=== PATIENT | female | born 1930 | race African-American/Black ===

== ENCOUNTER 2017-02-07 07:21 | Inpatient (IN) | payer MEDICARE, BC ==
[~2017-02-07] VITALS: Ht 157.5 cm; Wt 93.9 kg
[~2017-02-07 07:21] MED LIST: ACET650S28 PO; AMLO-512 PO; ASPI-1093 PO; ATOR10TA84 PO; BISA10S PR; BUPR1PAT TD; CLON.1 PO; DSS100 PO; ESCI10TA PO; ESZO2 PO; GABA-531 PO; LIDOP TD; LORA1TAB3 PO; LORA2TAB2 PO; METO25 PO; MOM30 PO; MULT-1192 PO; PANT40TA25 PO; SOLI5 PO; TRAM50TA4 PO
[2017-02-07] MEDS ORDERED: ASPIRIN 81 MG CHEWABLE TABLET PO ONE (07:45)
[2017-02-07] MEDS ORDERED: NITROGLYCERIN 2% (1 GM=INCH) PACKET TP ONE (07:45)
[2017-02-07 07:55] LABS: BASOPHILS % (AUTO) 0.5 % (0.0-2.0); HEMATOCRIT 27.7 % (36-46); HEMOGLOBIN 8.3 g/dL (12.0-16.0); LYMPHOCYTES # (AUTO) 2.3 K/uL (1.0-4.8); LYMPHOCYTES % (AUTO) 18.4 % (22.0-44.0); MEAN CORPUSCULAR HEMOGLOBIN 24.6 pg (26.0-34.0); MEAN CORPUSCULAR HGB CONC 30.1 G/dL (31.0-37.0); MEAN CORPUSCULAR VOLUME 82 fL (80-100); MONOCYTES # (AUTO) 1.1 K/uL (0.1-1.0); MONOCYTES % (AUTO) 8.6 % (2.0-9.0); NEUTROPHILS # (AUTO) 8.9 K/uL (1.8-7.7); NEUTROPHILS % (AUTO) 71.5 % (40.0-70.0); PLATELET COUNT (AUTO) 312 K/uL (150-450); RED BLOOD CELL COUNT(AUTO) 3.38 MIL/uL (4.00-5.20); RED CELL DISTRIBUTION WIDTH 18.1 % (11.5-14.5); WHITE BLOOD COUNT (AUTO) 12.4 K/uL (4.5-11.0)
[2017-02-07 08:14] LABS: ANION GAP 11 mmol/L (8-16); CALCIUM, TOTAL 8.7 mg/dL (8.8-10.5); CARBON DIOXIDE 27 mmol/L (22-29); CHLORIDE 103 mmol/L (98-107); GLOMERULAR FILTR. RATE CALC 37 mL/min (>60); POTASSIUM 4.1 mmol/L (3.5-5.1); SODIUM SERUM 141 mmol/L (136-145); UREA NITROGEN, BLOOD 21 mg/dL (7-18)
[2017-02-07 08:24] LABS: ALBUMIN 3.2 g/dL (3.4-5.0); ASPARTATE AMINOTRANSFERASE 9 U/L (15-37); BILIRUBIN,TOTAL 0.6 mg/dL (0.1-1.0); CREATINE KINASE, TOTAL 16 U/L (26-192); TOTAL PROTEIN, SERUM 7.1 g/dL (6.4-8.2)
[2017-02-07 08:31] LABS: B-TYPE NATRIURETIC PEPTIDE 369 pg/mL (0-100)
[2017-02-07 08:33] LABS: ALANINE AMINOTRANSFERASE 12 U/L (12-78)
[2017-02-07] MEDS ORDERED: ZOLPIDEM TARTRATE 10 MG TABLET PO PRN (09:00)
[2017-02-07] MEDS: ASPIRIN 81 MG CHEWABLE TABLET PO SCH (09:00)
[2017-02-07] MEDS ORDERED: IPRATROPIUM BROMIDE 0.5 MG/2.5 ML NEB SOLUTION NEB PRN (09:00)
[2017-02-07] MEDS ORDERED: ACETAMINOPHEN 325 MG TABLET PO PRN (09:00)
[2017-02-07] MEDS ORDERED: ONDANSETRON HCL 4 MG/2 ML VIAL IVP PRN (09:00)
[2017-02-07] MEDS ORDERED: HYDROCODONE/ACETAMINOPHEN 5-325 MG TABLET PO PRN (09:00)
[2017-02-07] MEDS ORDERED: MORPHINE SULFATE 2 MG/ML SYRINGE IVP PRN (09:00)
[2017-02-07] MEDS: PANTOPRAZOLE SODIUM 40 MG/VIAL IVP SCH (09:11)
[2017-02-07] MEDS: DOCUSATE SODIUM 100 MG CAPSULE PO SCH ×2 (09:12→21:00)
[2017-02-07 10:38] LABS: RBC MORPHOLOGY COMMENT ABNORMAL RBC MORPH
[2017-02-07] MEDS: NITROGLYCERIN 2% (1 GM=INCH) PACKET TP SCH ×3 (11:08→23:00)
[2017-02-07 17:42] VITALS: BP 132/51
[2017-02-07] MEDS: PANTOPRAZOLE SODIUM 40 MG DR TABLET PO SCH (18:15)
[2017-02-07] MEDS ORDERED: LORazepam 2 MG TABLET PO PRN (18:15)
[2017-02-07] MEDS ORDERED: LORazepam 1 MG TABLET PO PRN ×2 (18:15→23:03)
[2017-02-07] MEDS: AmLODIPine BESYLATE 10 MG TABLET PO SCH (19:36)
[2017-02-07] MEDS: ATORVASTATIN CALCIUM 10 MG TABLET PO SCH (19:36)
[2017-02-07] MEDS: -LIDODERM PATCH NOTE- MISC SCH ×2 (19:53)
[2017-02-07] MEDS ORDERED: BUPRENORPHINE 5 MCG/HOUR PATCH TD SCH (20:00)
[2017-02-07 20:11] VITALS: BP 171/83
[2017-02-07] MEDS: ESZOPICLONE 2 MG TABLET PO SCH (21:53)
[2017-02-07] MEDS: SOLIFENACIN SUCCINATE 5 MG TABLET PO SCH (21:54)
[2017-02-07] MEDS: METOPROLOL TARTRATE 25 MG TABLET PO SCH (21:54)
[2017-02-07 22:49] VITALS: BP 148/85
[2017-02-07] MEDS: TraMADol HCL 50 MG TABLET PO SCH (22:55)
[2017-02-07] MEDS: GABAPENTIN 300 MG CAPSULE PO SCH (22:55)
[2017-02-08 00:21] VITALS: BP 144/66
[2017-02-08 05:12] VITALS: BP 148/73
[2017-02-08 06:27] LABS: CHOL/HDL RATIO 1.7 (3.9-5.7)
[2017-02-08 08:04] VITALS: BP 147/58
[2017-02-08] MEDS: TraMADol HCL 50 MG TABLET PO SCH ×2 (08:32→15:56)
[2017-02-08] MEDS: DOCUSATE SODIUM 100 MG CAPSULE PO SCH ×2 (08:33→21:21)
[2017-02-08] MEDS: PANTOPRAZOLE SODIUM 40 MG/VIAL IVP SCH (08:33)
[2017-02-08] MEDS: ASPIRIN 81 MG CHEWABLE TABLET PO SCH (08:33)
[2017-02-08] MEDS: GABAPENTIN 300 MG CAPSULE PO SCH ×3 (08:34→21:21)
[2017-02-08] MEDS: ESCITALOPRAM OXALATE 10 MG TABLET PO SCH (08:34)
[2017-02-08] MEDS: MULTIVITAMINS, THERAPEUTIC TABLET PO SCH (08:34)
[2017-02-08] MEDS: AmLODIPine BESYLATE 10 MG TABLET PO SCH (08:34)
[2017-02-08] MEDS: ASPIRIN 81 MG EC TABLET PO SCH (08:34)
[2017-02-08] MEDS: LIDOCAINE HCL 5% TRANSDERMAL PATCH TD SCH (08:36)
[2017-02-08] MEDS: METOPROLOL TARTRATE 25 MG TABLET PO SCH (08:37)
[2017-02-08] MEDS: ATORVASTATIN CALCIUM 10 MG TABLET PO SCH (08:40)
[2017-02-08] MEDS: PANTOPRAZOLE SODIUM 40 MG DR TABLET PO SCH (08:40)
[2017-02-08 09:31] LABS: BASOPHILS % (AUTO) 0.5 % (0.0-2.0); EOSINOPHILS % (AUTO) 0.6 % (1.0-6.0); HEMATOCRIT 27.3 % (36-46); HEMOGLOBIN 8.1 g/dL (12.0-16.0); LYMPHOCYTES # (AUTO) 0.9 K/uL (1.0-4.8); LYMPHOCYTES % (AUTO) 8.7 % (22.0-44.0); MEAN CORPUSCULAR HEMOGLOBIN 24.3 pg (26.0-34.0); MEAN CORPUSCULAR HGB CONC 29.8 G/dL (31.0-37.0); MEAN CORPUSCULAR VOLUME 81 fL (80-100); MONOCYTES # (AUTO) 0.4 K/uL (0.1-1.0); MONOCYTES % (AUTO) 3.7 % (2.0-9.0); NEUTROPHILS # (AUTO) 8.8 K/uL (1.8-7.7); PLATELET COUNT (AUTO) 308 K/uL (150-450); RED BLOOD CELL COUNT(AUTO) 3.35 MIL/uL (4.00-5.20); WHITE BLOOD COUNT (AUTO) 10.2 K/uL (4.5-11.0)
[2017-02-08 09:42] LABS: NEUTROPHILS % (AUTO) 86.5 % (40.0-70.0); RBC MORPHOLOGY COMMENT ABNORMAL RBC MORPH
[2017-02-08 09:43] LABS: CALCIUM, TOTAL 8.5 mg/dL (8.8-10.5); CREATININE 1.44 mg/dL (0.60-1.30); POTASSIUM 4.7 mmol/L (3.5-5.1)
[2017-02-08 09:48] LABS: ALBUMIN 2.8 g/dL (3.4-5.0); BILIRUBIN,TOTAL 0.7 mg/dL (0.1-1.0); TOTAL PROTEIN, SERUM 6.4 g/dL (6.4-8.2)
[2017-02-08 10:07] LABS: VITAMIN B12 LEVEL 223 pg/mL (211-911)
[2017-02-08 11:53] VITALS: BP 126/56
[2017-02-08 15:37] VITALS: BP 130/59
[2017-02-08] MEDS: NITROGLYCERIN 2% (1 GM=INCH) PACKET TP SCH ×2 (15:55→15:56)
[2017-02-08 20:00] VITALS: BP 122/66
[2017-02-08] MEDS: METOPROLOL TARTRATE 50 MG TABLET PO SCH (21:21)
[2017-02-08] MEDS: SOLIFENACIN SUCCINATE 5 MG TABLET PO SCH (21:21)
[2017-02-08] MEDS: -LIDODERM PATCH NOTE- MISC SCH ×2 (21:21)
[2017-02-08] MEDS: ESZOPICLONE 2 MG TABLET PO SCH (21:21)
[2017-02-09 04:20] VITALS: BP 136/65
[2017-02-09] MEDS: TraMADol HCL 50 MG TABLET PO SCH ×4 (04:21→16:43)
[2017-02-09] MEDS: NITROGLYCERIN 2% (1 GM=INCH) PACKET TP SCH ×4 (05:58→18:16)
[2017-02-09 07:59] VITALS: BP 120/57
[2017-02-09] MEDS: ESCITALOPRAM OXALATE 10 MG TABLET PO SCH (08:42)
[2017-02-09] MEDS: ASPIRIN 81 MG EC TABLET PO SCH (08:42)
[2017-02-09] MEDS: AmLODIPine BESYLATE 10 MG TABLET PO SCH (08:43)
[2017-02-09] MEDS: GABAPENTIN 300 MG CAPSULE PO SCH ×3 (08:43→21:25)
[2017-02-09] MEDS: ATORVASTATIN CALCIUM 20 MG TABLET PO SCH (08:43)
[2017-02-09] MEDS: DOCUSATE SODIUM 100 MG CAPSULE PO SCH ×2 (08:43→21:25)
[2017-02-09] MEDS: METOPROLOL TARTRATE 50 MG TABLET PO SCH ×2 (08:43→21:00)
[2017-02-09] MEDS: PANTOPRAZOLE SODIUM 40 MG DR TABLET PO SCH (08:43)
[2017-02-09] MEDS: MULTIVITAMINS, THERAPEUTIC TABLET PO SCH (08:43)
[2017-02-09] MEDS: LIDOCAINE HCL 5% TRANSDERMAL PATCH TD SCH ×2 (08:53→21:26)
[2017-02-09] MEDS: PANTOPRAZOLE SODIUM 40 MG/VIAL IVP SCH (08:54)
[2017-02-09 10:23] LABS: BASOPHILS % (AUTO) 0.2 % (0.0-2.0); EOSINOPHILS % (AUTO) 2.1 % (1.0-6.0); HEMATOCRIT 26.3 % (36-46); HEMOGLOBIN 7.9 g/dL (12.0-16.0); LYMPHOCYTES % (AUTO) 11.8 % (22.0-44.0); MEAN CORPUSCULAR HEMOGLOBIN 24.5 pg (26.0-34.0); MEAN CORPUSCULAR HGB CONC 30.1 G/dL (31.0-37.0); MEAN CORPUSCULAR VOLUME 82 fL (80-100); MONOCYTES # (AUTO) 0.8 K/uL (0.1-1.0); MONOCYTES % (AUTO) 9.3 % (2.0-9.0); NEUTROPHILS # (AUTO) 6.7 K/uL (1.8-7.7); NEUTROPHILS % (AUTO) 76.6 % (40.0-70.0); PLATELET COUNT (AUTO) 299 K/uL (150-450); RED BLOOD CELL COUNT(AUTO) 3.22 MIL/uL (4.00-5.20); RED CELL DISTRIBUTION WIDTH 17.9 % (11.5-14.5); WHITE BLOOD COUNT (AUTO) 8.8 K/uL (4.5-11.0)
[2017-02-09 10:41] LABS: ALBUMIN 2.5 g/dL (3.4-5.0); BILIRUBIN,TOTAL 0.6 mg/dL (0.1-1.0); CALCIUM, TOTAL 8.2 mg/dL (8.8-10.5); CREATININE 1.57 mg/dL (0.60-1.30); POTASSIUM 4.7 mmol/L (3.5-5.1); TOTAL PROTEIN, SERUM 6.1 g/dL (6.4-8.2)
[2017-02-09 10:49] LABS: RBC MORPHOLOGY COMMENT ABNORMAL RBC MORPH
[2017-02-09 11:35] VITALS: BP 124/48
[2017-02-09 15:10] VITALS: BP 129/70
[2017-02-09 19:05] VITALS: BP 107/51
[2017-02-09] MEDS: SOLIFENACIN SUCCINATE 5 MG TABLET PO SCH (21:25)
[2017-02-09] MEDS: MAGNESIUM HYDROXIDE SUSPENSION 30 ML UDCUP PO PRN (21:25)
[2017-02-09] MEDS: ESZOPICLONE 2 MG TABLET PO SCH (21:25)
[2017-02-10] MEDS: NITROGLYCERIN 2% (1 GM=INCH) PACKET TP SCH ×4 (06:45→18:28)
[2017-02-10 06:46] VITALS: BP 124/60
[2017-02-10] MEDS: GABAPENTIN 300 MG CAPSULE PO SCH ×3 (09:00→21:00)
[2017-02-10 09:59] VITALS: BP 135/61
[2017-02-10] MEDS: AmLODIPine BESYLATE 10 MG TABLET PO SCH (10:03)
[2017-02-10] MEDS: TraMADol HCL 50 MG TABLET PO SCH ×3 (10:03→18:28)
[2017-02-10] MEDS: -LIDODERM PATCH NOTE- MISC SCH ×2 (10:03)
[2017-02-10] MEDS: DOCUSATE SODIUM 100 MG CAPSULE PO SCH ×2 (10:03→20:32)
[2017-02-10] MEDS: PANTOPRAZOLE SODIUM 40 MG DR TABLET PO SCH (10:03)
[2017-02-10] MEDS: MULTIVITAMINS, THERAPEUTIC TABLET PO SCH (10:03)
[2017-02-10] MEDS: ATORVASTATIN CALCIUM 20 MG TABLET PO SCH (10:03)
[2017-02-10] MEDS: ASPIRIN 81 MG EC TABLET PO SCH (10:03)
[2017-02-10] MEDS: METOPROLOL TARTRATE 50 MG TABLET PO SCH ×2 (10:03→20:32)
[2017-02-10 11:28] VITALS: BP 133/62
[2017-02-10] MEDS: ESCITALOPRAM OXALATE 10 MG TABLET PO SCH (11:48)
[2017-02-10 15:44] VITALS: BP 109/55
[2017-02-10 19:45] VITALS: BP 135/80
[2017-02-10] MEDS: SOLIFENACIN SUCCINATE 5 MG TABLET PO SCH (20:32)
[2017-02-10] MEDS: ESZOPICLONE 2 MG TABLET PO SCH (20:33)
[2017-02-10] MEDS: LIDOCAINE HCL 5% TRANSDERMAL PATCH TD SCH (20:33)
[2017-02-10] MEDS: MAGNESIUM HYDROXIDE SUSPENSION 30 ML UDCUP PO PRN (20:41)
[2017-02-11] MEDS: GABAPENTIN 100 MG CAPSULE PO SCH ×2 (00:41→17:10)
[2017-02-11] MEDS: TraMADol HCL 50 MG TABLET PO SCH ×3 (00:41→17:10)
[2017-02-11] MEDS: NITROGLYCERIN 2% (1 GM=INCH) PACKET TP SCH ×3 (00:42→13:15)
[2017-02-11 00:50] VITALS: BP 131/65
[2017-02-11 04:43] VITALS: BP 142/67
[2017-02-11 07:55] VITALS: BP 145/61
[2017-02-11] MEDS: ATORVASTATIN CALCIUM 20 MG TABLET PO SCH (09:12)
[2017-02-11] MEDS: DOCUSATE SODIUM 100 MG CAPSULE PO SCH (09:12)
[2017-02-11] MEDS: PANTOPRAZOLE SODIUM 40 MG DR TABLET PO SCH (09:12)
[2017-02-11] MEDS: METOPROLOL TARTRATE 50 MG TABLET PO SCH (09:12)
[2017-02-11] MEDS: MULTIVITAMINS, THERAPEUTIC TABLET PO SCH (09:12)
[2017-02-11] MEDS: ESCITALOPRAM OXALATE 10 MG TABLET PO SCH (09:12)
[2017-02-11] MEDS: AmLODIPine BESYLATE 10 MG TABLET PO SCH (09:12)
[2017-02-11] MEDS: -LIDODERM PATCH NOTE- MISC SCH ×2 (09:16)
[2017-02-11 10:50] VITALS: BP 127/55
[2017-02-11 13:00] LABS: BASOPHILS # (AUTO) 0.02 K/uL (0.00-0.20); BASOPHILS % (AUTO) 0.2 % (0.0-2.0); EOSINOPHILS # (AUTO) 0.28 K/uL (0.00-0.70); EOSINOPHILS % (AUTO) 2.62 % (1.0-6.0); HEMATOCRIT 28.4 % (36-46); HEMOGLOBIN 8.7 g/dL (12.0-16.0); LYMPHOCYTES # (AUTO) 0.8 K/uL (1.0-4.8); LYMPHOCYTES % (AUTO) 7.4 % (22.0-44.0); MEAN CORPUSCULAR HEMOGLOBIN 24.8 pg (26.0-34.0); MEAN CORPUSCULAR HGB CONC 30.5 G/dL (31.0-37.0); MEAN CORPUSCULAR VOLUME 81 fL (80-100); MONOCYTES # (AUTO) 1.1 K/uL (0.1-1.0); MONOCYTES % (AUTO) 10.1 % (2.0-9.0); NEUTROPHILS # (AUTO) 8.4 K/uL (1.8-7.7); NEUTROPHILS % (AUTO) 79.7 % (40.0-70.0); PLATELET COUNT (AUTO) 382 K/uL (150-450); RED BLOOD CELL COUNT(AUTO) 3.49 MIL/uL (4.00-5.20); RED CELL DISTRIBUTION WIDTH 17.5 % (11.5-14.5); WHITE BLOOD COUNT (AUTO) 10.5 K/uL (4.5-11.0)
[2017-02-11 13:23] LABS: CALCIUM, TOTAL 8.8 mg/dL (8.8-10.5); CREATININE 1.57 mg/dL (0.60-1.30); POTASSIUM 5.1 mmol/L (3.5-5.1)
[2017-02-11 13:33] LABS: RBC MORPHOLOGY COMMENT ABNORMAL RBC MORPH
[2017-02-11] MEDS ORDERED: METO50 PO (17:49)
== END 2017-02-11 18:10 | DRG 291 ==
LOC: EMS 07:24 → AHU 16:43 → EEVIPCON 16:43 → 5N 20:45
PROVIDERS: ADMIT Hospitalist; ATTEND Hospitalist
DX: I13.0 Hypertensive heart and chronic kidney disease with heart failure and stage 1 through stage 4 chronic kidney disease, or unspecified chronic kidney disease (principal); I50.33 Acute on chronic diastolic (congestive) heart failure; E44.0 Moderate protein-calorie malnutrition; I20.0 Unstable angina; D64.9 Anemia, unspecified; G89.29 Other chronic pain; E78.5 Hyperlipidemia, unspecified; E11.22 Type 2 diabetes mellitus with diabetic chronic kidney disease; M06.9 Rheumatoid arthritis, unspecified; M79.602 Pain in left arm; N18.9 Chronic kidney disease, unspecified; I25.9 Chronic ischemic heart disease, unspecified; F32.9 Major depressive disorder, single episode, unspecified; I73.9 Peripheral vascular disease, unspecified; Z88.0 Allergy status to penicillin; Z79.899 Other long term (current) drug therapy; Z79.82 Long term (current) use of aspirin; Z98.890 Other specified postprocedural states; Z88.7 Allergy status to serum and vaccine; Z88.8 Allergy status to other drugs, medicaments and biological substances; Z68.37 Body mass index [BMI] 37.0-37.9, adult; Z87.81 Personal history of (healed) traumatic fracture; Z82.49 Family history of ischemic heart disease and other diseases of the circulatory system
CPT/HCPCS: 70450; 73200; 82607; 82746; 83540; 83550; 87081; 93005; 93306; 97161; 99285; C9113; J2270

== ENCOUNTER 2017-06-11 19:15 | Emergency (ER) | payer MEDICARE, BC ==
[~2017-06-11] VITALS: Ht 152.4 cm; Wt 88.6 kg
[~2017-06-11 19:15] MED LIST changes: +ACET-2247 PO; -ACET650S28 PO; -BISA10S PR; -BUPR1PAT TD; -CLON.1 PO; -LORA2TAB2 PO; -METO25 PO; +METO50 PO; -MOM30 PO; +VITAD1000 PO
[2017-06-11] MEDS ORDERED: HYDROCODONE/ACETAMINOPHEN 10-325 MG TABLET PO ONE (20:15)
[2017-06-11 22:00] VITALS: BP 124/78
[2017-06-12] MEDS ORDERED: HYDR-309 PO (20:04)
== END 2017-06-11 22:23 | disposition home or self-care (01) ==
LOC: EMS 19:17
DX: G89.18 Other acute postprocedural pain (principal); M25.522 Pain in left elbow; I10 Essential (primary) hypertension; Z88.0 Allergy status to penicillin; Z88.7 Allergy status to serum and vaccine; Z79.82 Long term (current) use of aspirin; M19.90 Unspecified osteoarthritis, unspecified site; N28.9 Disorder of kidney and ureter, unspecified
CPT/HCPCS: 99283

== ENCOUNTER 2017-06-12 17:57 | Inpatient (IN) | payer MEDICARE, BC ==
[2017-06-12 19:43] VITALS: BP 122/50
[2017-06-12] MEDS ORDERED: HYDR-309 PO (20:04)
[2017-06-12] MEDS ORDERED: SODIUM CHLORIDE 0.9% 1,000 ML IV ONE (20:45)
[2017-06-12] MEDS ORDERED: ACETAMINOPHEN 325 MG TABLET PO PRN (20:45)
[2017-06-12] MEDS ORDERED: LORazepam 1 MG TABLET PO PRN (20:45)
[2017-06-12] MEDS: AmLODIPine BESYLATE 10 MG TABLET PO SCH (20:45)
[2017-06-12] MEDS: HYDROCODONE/ACETAMINOPHEN 10-325 MG TABLET PO PRN (20:55)
[2017-06-12 21:06] LABS: BASOPHILS % (AUTO) 0.2 % (0.0-2.0); HEMATOCRIT 22.8 % (36-46); HEMOGLOBIN 7.1 g/dL (12.0-16.0); LYMPHOCYTES # (AUTO) 1.3 K/uL (1.0-4.8); LYMPHOCYTES % (AUTO) 18.5 % (22.0-44.0); MEAN CORPUSCULAR HEMOGLOBIN 24.5 pg (26.0-34.0); MEAN CORPUSCULAR HGB CONC 31.3 G/dL (31.0-37.0); MEAN CORPUSCULAR VOLUME 78 fL (80-100); MONOCYTES # (AUTO) 0.9 K/uL (0.1-1.0); MONOCYTES % (AUTO) 12.8 % (2.0-9.0); NEUTROPHILS # (AUTO) 4.5 K/uL (1.8-7.7); NEUTROPHILS % (AUTO) 64.5 % (40.0-70.0); PLATELET COUNT (AUTO) 231 K/uL (150-450); RED BLOOD CELL COUNT(AUTO) 2.91 MIL/uL (4.00-5.20); RED CELL DISTRIBUTION WIDTH 20.8 % (11.5-14.5)
[2017-06-12 21:21] LABS: CALCIUM, TOTAL 8.8 mg/dL (8.8-10.5); CREATININE 1.72 mg/dL (0.60-1.30); POTASSIUM 4.9 mmol/L (3.5-5.1)
[2017-06-12 21:26] LABS: ALBUMIN 2.9 g/dL (3.4-5.0); BILIRUBIN,TOTAL 0.4 mg/dL (0.1-1.0); MAGNESIUM 1.7 mg/dL (1.80-2.40); TOTAL PROTEIN, SERUM 6.4 g/dL (6.4-8.2)
[2017-06-12] MEDS: -LIDODERM PATCH NOTE- MISC SCH ×2 (21:31)
[2017-06-12] MEDS: SOLIFENACIN SUCCINATE 5 MG TABLET PO SCH (21:36)
[2017-06-12] MEDS: DOCUSATE SODIUM 100 MG CAPSULE PO SCH (21:36)
[2017-06-12] MEDS: METOPROLOL TARTRATE 50 MG TABLET PO SCH (21:36)
[2017-06-12] MEDS: GABAPENTIN 300 MG CAPSULE PO SCH (21:37)
[2017-06-12] MEDS ORDERED: MAGNESIUM OXIDE 400 MG TABLET PO ONE (22:30)
[2017-06-12] MEDS ORDERED: ONDANSETRON HCL 4 MG/2 ML VIAL IVP PRN (22:45)
[2017-06-12] MEDS ORDERED: MAGNESIUM HYDROXIDE SUSPENSION 30 ML UDCUP PO PRN (22:45)
[2017-06-12] MEDS ORDERED: IPRATROPIUM BROMIDE 0.5 MG/2.5 ML NEB SOLUTION NEB PRN (22:45)
[2017-06-12] MEDS ORDERED: ALBUTEROL SULFATE 2.5 MG/0.5 ML NEB SOLUTION NEB PRN (22:45)
[2017-06-12] MEDS ORDERED: BISACODYL 10 MG RECTAL RECTAL SUPPOSITORY PR PRN (22:45)
[2017-06-12 22:48] LABS: RBC MORPHOLOGY COMMENT ABNORMAL RBC MORPH
[2017-06-12 23:09] VITALS: BP 123/59
[2017-06-12] MEDS: ESZOPICLONE 2 MG TABLET PO SCH (23:37)
[2017-06-12] MEDS: TraMADol HCL 50 MG TABLET PO SCH (23:37)
[2017-06-12] MEDS: PANTOPRAZOLE SODIUM 40 MG/VIAL IVP SCH (23:37)
[2017-06-13 04:46] VITALS: BP 142/69
[2017-06-13] MEDS: HYDROCODONE/ACETAMINOPHEN 10-325 MG TABLET PO PRN ×4 (04:49→20:47)
[2017-06-13 07:07] LABS: PROTHROMBIN TIME 10.9 SEC (9.4-11.6)
[2017-06-13 07:42] LABS: ALBUMIN 2.7 g/dL (3.4-5.0); BILIRUBIN,TOTAL 0.4 mg/dL (0.1-1.0); CALCIUM, TOTAL 8.3 mg/dL (8.8-10.5); CREATININE 1.51 mg/dL (0.60-1.30); MAGNESIUM 1.7 mg/dL (1.80-2.40); PHOSPHORUS 3.7 mg/dL (2.5-4.9); POTASSIUM 4.2 mmol/L (3.5-5.1); TOTAL PROTEIN, SERUM 6.2 g/dL (6.4-8.2)
[2017-06-13 07:49] LABS: BASOPHILS % (AUTO) 0.4 % (0.0-2.0); EOSINOPHILS % (AUTO) 5.7 % (1.0-6.0); HEMATOCRIT 22.4 % (36-46); HEMOGLOBIN 7.1 g/dL (12.0-16.0); LYMPHOCYTES # (AUTO) 1.5 K/uL (1.0-4.8); LYMPHOCYTES % (AUTO) 23.2 % (22.0-44.0); MEAN CORPUSCULAR HEMOGLOBIN 24.9 pg (26.0-34.0); MEAN CORPUSCULAR HGB CONC 31.7 G/dL (31.0-37.0); MEAN CORPUSCULAR VOLUME 79 fL (80-100); MONOCYTES # (AUTO) 0.8 K/uL (0.1-1.0); MONOCYTES % (AUTO) 13.1 % (2.0-9.0); NEUTROPHILS # (AUTO) 3.7 K/uL (1.8-7.7); NEUTROPHILS % (AUTO) 57.6 % (40.0-70.0); PLATELET COUNT (AUTO) 222 K/uL (150-450); RED BLOOD CELL COUNT(AUTO) 2.85 MIL/uL (4.00-5.20); RED CELL DISTRIBUTION WIDTH 21.1 % (11.5-14.5); WHITE BLOOD COUNT (AUTO) 6.4 K/uL (4.5-11.0)
[2017-06-13] MEDS: METOPROLOL TARTRATE 50 MG TABLET PO SCH ×2 (08:18→20:31)
[2017-06-13] MEDS: MULTIVITAMINS, THERAPEUTIC TABLET PO SCH (08:18)
[2017-06-13] MEDS: PANTOPRAZOLE SODIUM 40 MG/VIAL IVP SCH ×2 (08:18→20:31)
[2017-06-13] MEDS: ESCITALOPRAM OXALATE 10 MG TABLET PO SCH (08:18)
[2017-06-13] MEDS: TraMADol HCL 50 MG TABLET PO SCH ×3 (08:19→23:51)
[2017-06-13] MEDS: GABAPENTIN 300 MG CAPSULE PO SCH ×3 (08:19→20:32)
[2017-06-13] MEDS: DOCUSATE SODIUM 100 MG CAPSULE PO SCH ×2 (08:19→20:32)
[2017-06-13] MEDS: AmLODIPine BESYLATE 10 MG TABLET PO SCH (08:19)
[2017-06-13] MEDS: ATORVASTATIN CALCIUM 10 MG TABLET PO SCH (08:19)
[2017-06-13] MEDS: CHOLECALCIFEROL (VIT D3) 1,000 UNITS TABLET PO SCH (08:19)
[2017-06-13] MEDS: LIDOCAINE HCL 5% TRANSDERMAL PATCH TD SCH ×2 (08:26→09:00)
[2017-06-13 08:29] VITALS: BP 161/72
[2017-06-13 08:29] LABS: VITAMIN B12 LEVEL 248 pg/mL (211-911)
[2017-06-13 08:59] LABS: HEMATOCRIT 23.7 % (36-46); HEMOGLOBIN 7.4 g/dL (12.0-16.0)
[2017-06-13] MEDS ORDERED: PANTOPRAZOLE SODIUM 40 MG DR TABLET PO SCH (09:00)
[2017-06-13] MEDS ORDERED: ASPIRIN 81 MG EC TABLET PO SCH (09:00)
[2017-06-13 11:40] VITALS: BP 117/47
[2017-06-13 13:02] LABS: RBC MORPHOLOGY COMMENT ABNORMAL RBC MORPH
[2017-06-13 16:26] VITALS: BP 148/63
[2017-06-13 19:49] VITALS: BP 140/55
[2017-06-13] MEDS: ESZOPICLONE 2 MG TABLET PO SCH (20:31)
[2017-06-13] MEDS: SOLIFENACIN SUCCINATE 5 MG TABLET PO SCH (20:32)
[2017-06-13] MEDS: -LIDODERM PATCH NOTE- MISC SCH ×2 (20:53)
[2017-06-13 21:49] LABS: HEMATOCRIT 23.8 % (36-46); HEMOGLOBIN 7.1 g/dL (12.0-16.0)
[2017-06-13 23:32] VITALS: BP 134/68
[2017-06-13] MEDS: IRON SUCROSE COMPLEX 100 MG in SODIUM CHLORIDE 0.9% 100 ML IV SCH (23:35)
[2017-06-14 03:39] VITALS: BP 151/73
[2017-06-14] MEDS: HYDROCODONE/ACETAMINOPHEN 10-325 MG TABLET PO PRN ×2 (03:43→09:05)
[2017-06-14 07:59] VITALS: BP 125/69
[2017-06-14] MEDS: ESCITALOPRAM OXALATE 10 MG TABLET PO SCH (08:22)
[2017-06-14] MEDS: TraMADol HCL 50 MG TABLET PO SCH ×3 (08:22→23:18)
[2017-06-14] MEDS: MULTIVITAMINS, THERAPEUTIC TABLET PO SCH (08:24)
[2017-06-14] MEDS: ATORVASTATIN CALCIUM 10 MG TABLET PO SCH (08:24)
[2017-06-14] MEDS: METOPROLOL TARTRATE 50 MG TABLET PO SCH ×2 (08:24→19:49)
[2017-06-14] MEDS: DOCUSATE SODIUM 100 MG CAPSULE PO SCH ×2 (08:24→19:49)
[2017-06-14] MEDS: AmLODIPine BESYLATE 10 MG TABLET PO SCH (08:24)
[2017-06-14] MEDS: GABAPENTIN 300 MG CAPSULE PO SCH ×3 (08:24→19:49)
[2017-06-14] MEDS: CHOLECALCIFEROL (VIT D3) 1,000 UNITS TABLET PO SCH (08:24)
[2017-06-14] MEDS: PANTOPRAZOLE SODIUM 40 MG/VIAL IVP SCH ×2 (08:26→19:48)
[2017-06-14 08:58] LABS: HEMATOCRIT 24.6 % (36-46); HEMOGLOBIN 7.6 g/dL (12.0-16.0)
[2017-06-14] MEDS: LIDOCAINE HCL 5% TRANSDERMAL PATCH TD SCH (09:00)
[2017-06-14 11:45] VITALS: BP 121/60
[2017-06-14 15:28] VITALS: BP 112/51
[2017-06-14] MEDS: IRON SUCROSE COMPLEX 100 MG in SODIUM CHLORIDE 0.9% 100 ML IV SCH (19:48)
[2017-06-14] MEDS: SOLIFENACIN SUCCINATE 5 MG TABLET PO SCH (19:49)
[2017-06-14] MEDS: HYDROmorphone 2 MG/ML SYRINGE IVP PRN (19:50)
[2017-06-14 19:56] VITALS: BP 124/48
[2017-06-14] MEDS: -LIDODERM PATCH NOTE- MISC SCH ×2 (20:09)
[2017-06-14] MEDS: ESZOPICLONE 2 MG TABLET PO SCH (20:14)
[2017-06-14 21:31] LABS: HEMATOCRIT 23.7 % (36-46); HEMOGLOBIN 7.4 g/dL (12.0-16.0)
[2017-06-14 23:32] VITALS: BP 144/55
[2017-06-15 05:09] VITALS: BP 149/64
[2017-06-15] MEDS: HYDROmorphone 2 MG/ML SYRINGE IVP PRN (06:20)
[2017-06-15 07:28] VITALS: BP 134/59
[2017-06-15] MEDS: PANTOPRAZOLE SODIUM 40 MG/VIAL IVP SCH (08:21)
[2017-06-15] MEDS: CHOLECALCIFEROL (VIT D3) 1,000 UNITS TABLET PO SCH (08:22)
[2017-06-15] MEDS: METOPROLOL TARTRATE 50 MG TABLET PO SCH (08:22)
[2017-06-15] MEDS: MULTIVITAMINS, THERAPEUTIC TABLET PO SCH (08:22)
[2017-06-15] MEDS: TraMADol HCL 50 MG TABLET PO SCH (08:22)
[2017-06-15] MEDS: ESCITALOPRAM OXALATE 10 MG TABLET PO SCH (08:22)
[2017-06-15] MEDS: ATORVASTATIN CALCIUM 10 MG TABLET PO SCH (08:22)
[2017-06-15] MEDS: GABAPENTIN 300 MG CAPSULE PO SCH (08:22)
[2017-06-15] MEDS: DOCUSATE SODIUM 100 MG CAPSULE PO SCH (08:22)
[2017-06-15] MEDS: LIDOCAINE HCL 5% TRANSDERMAL PATCH TD SCH (08:23)
[2017-06-15 10:01] LABS: HEMATOCRIT 23.9 % (36-46); HEMOGLOBIN 7.5 g/dL (12.0-16.0)
[2017-06-15] MEDS: AmLODIPine BESYLATE 10 MG TABLET PO SCH (10:44)
== END 2017-06-15 11:10 | DRG 683 ==
LOC: 6N 19:10
PROVIDERS: ADMIT Hospitalist; ATTEND Hospitalist
DX: N17.9 Acute kidney failure, unspecified (principal); D62 Acute posthemorrhagic anemia; G89.4 Chronic pain syndrome; R73.9 Hyperglycemia, unspecified; N18.3 Chronic kidney disease, stage 3 (moderate); Z79.82 Long term (current) use of aspirin; E78.5 Hyperlipidemia, unspecified; E83.42 Hypomagnesemia; F32.9 Major depressive disorder, single episode, unspecified; G62.9 Polyneuropathy, unspecified; I12.9 Hypertensive chronic kidney disease with stage 1 through stage 4 chronic kidney disease, or unspecified chronic kidney disease; K21.9 Gastro-esophageal reflux disease without esophagitis; Z82.49 Family history of ischemic heart disease and other diseases of the circulatory system; N28.9 Disorder of kidney and ureter, unspecified; M13.819 Other specified arthritis, unspecified shoulder; Z80.0 Family history of malignant neoplasm of digestive organs; Z88.7 Allergy status to serum and vaccine; Z88.8 Allergy status to other drugs, medicaments and biological substances; Z79.899 Other long term (current) drug therapy; M19.90 Unspecified osteoarthritis, unspecified site
CPT/HCPCS: 82270; 82607; 82728; 82746; 83036; 83540; 83550; 83735; 84100; 85014; 85018; 87081; 97110; 97116; 97163; 97167; 97530; C9113; J1170; J1756; J7030; J7050